=== PATIENT | female | born 1960 | race Caucasian/White ===

== ENCOUNTER 2020-04-29 17:10 | Outpatient (CLI) | payer BC, SELFPAY ==
--- NOTE | ~2020-04-29 | MM_ITS ---
EXAMINATION: 2 HISTORY: Screening mammogram TECHNIQUE: Craniocaudal and mediolateral oblique 3-D tomosynthesis images were obtained and synthetic 2-D images were generated. CAD analysis was submitted and interpreted. COMPARISON: 01/22/2019, 02/20/2017, 02/15/2016 bilateral digital screening mammogram examinations BREAST PARENCHYMAL COMPOSITION: The breasts are heterogeneously dense, which may obscure small masses . FINDINGS: Occasional bilateral benign calcifications. There is no evidence of suspicious mass, calcif ication, or architectural distortion to suggest malignancy in either breast. There has been no suspic ious interval change. IMPRESSION: 1. No mammographic evidence of malignancy. 2. Recommend routine screening mammography in one year. BI-RADS Category 1: Negative Reviewed, dictated and finalized at location A.
== END 2020-04-29 17:11 | disposition home or self-care (01) ==
LOC: ANHIMG 17:13
PROVIDERS: PCP Family Medicine; Visit Provider Obstetrics & Gynecology
DX: Z12.31 Encounter for screening mammogram for malignant neoplasm of breast (principal)
CPT/HCPCS: 77063; 77067

== ENCOUNTER → 2021-09-15 16:09 | Outpatient (CLI) | payer BC, SELFPAY ==
--- NOTE | ~2021-09-15 | MM_ITS ---
EXAMINATION: MM screening [facility] BI w amanda HISTORY: Screening mammogram TECHNIQUE: Craniocaudal and mediolateral oblique 3-D tomosynthesis images were obtained and synthetic 2-D images were generated. CAD analysis was submitted and interpreted. COMPARISON: 04/29/2020, 01/22/2019, 02/20/2017 BREAST PARENCHYMAL COMPOSITION: The breasts are heterogeneously dense, which may obscure small masses . FINDINGS: Scattered benign-appearing calcifications are present. There is no evidence of suspicious m ass, calcification, or architectural distortion to suggest malignancy in either breast. There has bee n no suspicious interval change. IMPRESSION: 1. No mammographic evidence of malignancy. 2. Recommend routine screening mammography in one year. BI-RADS Category 2: Benign finding(s). Reviewed, dictated and finalized at location A. [employer]OR OF EVENT MANAGEMENT
== END ==
PROVIDERS: PCP Family Medicine; Visit Provider Obstetrics & Gynecology
DX: Z12.31 Encounter for screening mammogram for malignant neoplasm of breast (principal)
CPT/HCPCS: 77063; 77067

== ENCOUNTER 2021-12-30 10:37 | Outpatient (CLI) | payer BC, SELFPAY ==
--- NOTE | ~2021-12-30 | XR_ITS ---
EXAMINATION: XR knee RT min 4V DATE: 12/30/2021 11:01 INDICATION: Chronic right knee pain. TECHNIQUE: 4 views of right knee including standing views were obtained. COMPARISON: None. FINDINGS: There is lateral subluxation of patella. No fracture. There is moderate osteoarthritis of p atellofemoral compartment and mild osteoarthritis of medial and lateral compartments. There is a smal l knee joint effusion. IMPRESSION: 1. Moderate right knee osteoarthritis. 2. Small right knee joint effusion. Reviewed, dictated and finalized at location B.
== END 2021-12-30 10:38 | disposition home or self-care (01) ==
LOC: ANHIMG 10:40
PROVIDERS: PCP Family Medicine; Visit Provider Physician Assistant
DX: M25.561 Pain in right knee (principal); M17.11 Unilateral primary osteoarthritis, right knee; M25.461 Effusion, right knee
CPT/HCPCS: 73564

== ENCOUNTER 2022-04-01 09:02 | Outpatient (CLI) | payer BC, SELFPAY ==
--- NOTE | ~2022-04-01 | MR_ITS ---
EXAMINATION: MR knee RT wo con DATE: 04/01/2022 09:48 INDICATION: Right knee pain. TECHNIQUE: Magnetic resonance imaging (MRI) of the right knee was performed without intravenous contr ast. Sequences included axial PD-weighted FS FSE, coronal PD-weighted FSE and PD-weighted FS FSE, sag ittal PD-weighted FSE, and sagittal T2-weighted FS FSE. COMPARISON: X-ray right knee, 12/30/2021. FINDINGS: Medial compartment: Mild generative signal change and fraying in the medial meniscus. No discrete tear. Moderate diffuse thinning of cartilage and osteophytosis. Lateral compartment: Attenuated anterior meniscus, without visualization of displaced or flipped fragments. Lateral menisc al extrusion. Degenerative fraying and signal change in the lateral meniscus. Moderate loss of cartil age and osteophytosis. Patellofemoral compartment: Full-thickness cartilage loss on the lateral facet. Moderate osteophytosis. Medial and lateral retina cula are intact. Ligaments and tendons: ACL, PCL, MCL, and LCL are intact. Flexor and extensor tendons are intact. Fluid: Moderate volume joint fluid. Osseous/other: No suspicious focal or diffuse marrow signal. IMPRESSION: 1. Degenerative changes of the lateral meniscus, with a tear of the anterior horn. 2. Moderate tricompartmental osteophytosis. 3. Moderate knee joint effusion. Reviewed, dictated and finalized at location K. IMPRESSION: 1. Degenerative changes of the lateral meniscus, with a tear of the anterior ho rn. 2. Moderate tricompartmental osteophytosis. 3. Moderate knee joint effusion.
== END 2022-04-01 09:03 | disposition home or self-care (01) ==
PROVIDERS: PCP Family Medicine; Visit Provider Family Medicine
DX: M25.461 Effusion, right knee (principal); S83.281A Other tear of lateral meniscus, current injury, right knee, initial encounter; X58.XXXA Exposure to other specified factors, initial encounter
CPT/HCPCS: 73721

== ENCOUNTER 2022-04-21 10:02 | Emergency (ER) | payer BC, SELFPAY ==
--- NOTE | 2022-04-21 10:08 | ED.URI ---
HPI - URI/Sore Throat General Chief Complaint: Upper Respiratory Infection Stated Complaint: Sore Throat,Headache,Fever Time Seen by Provider: 04/21/22 10:10 History of Present Illness HPI Narrative: Taylor Ramirez is a 61 yo female with a PMH of high blood pressure, who comes to [facility] with complaints of upper respiratory symptoms a temperature of 102? this being on for last couple of days. She has had 2- COVID test at home and is complaining of sore throat pain States she has sinus pressure, drinking fluids Related Data Home Medications Medication Instructions Recorded Confirmed cholecalciferol (vitamin D3) 25 1,000 unit PO DAILY 11/14/19 04/21/22 mcg (1,000 unit) capsule magnesium 250 mg tablet 250 mg PO DAILY 11/14/19 04/21/22 Allergies Allergy/AdvReac Type Severity Reaction Status Date / Time Sulfa (Sulfonamide AdvReac Mild Hives Verified 04/21/22 14:02 Antibiotics) Review of Systems Review of Systems: CONSTITUTIONAL: has fever, chills, sweats. EYES: Denies visual changes, redness, discharge. ENT: Denies rhinorrhea, congestion, has sore throat, otalgia. CARDIOVASCULAR: Denies chest pain, palpitations, edema. RESPIRATORY: Denies dyspnea, wheezing, cough GASTROINTESTINAL: Denies abdominal pain, nausea, vomiting, diarrhea. GENITOURINARY: Denies dysuria, hematuria, abnormal discharge SKIN: Denies rash or itching. NEUROLOGIC: Denies numbness, or focal weakness. PSYCHIATRIC: Denies anxiety or depression. [facility] Past Medical History Medical History Hepatitis C antibody test negative (06/15/17) Surgical History Surgical History H/O colonoscopy 05-01-2016 History of bilateral tubal ligation Family History Family History Father Diabetes mellitus Family history of elevated blood lipids Grandparent Diabetes mellitus Family history of osteoporosis Family history of arthritis Mother Diabetes mellitus Family history of elevated blood lipids Family history of glaucoma Hypertension Family history of arthritis Social History Social History Smoking status: Never smoker Alcohol intake: current Alcohol use details: occasionnally Substance use: never Substance use type: does not use Gender identity (if verbalized by the patient): Female Sexual Orientation (if Verbalized by the Patient): Straight or Heterosexual Agree to blood products: Yes Comments At time of signature, I agree with nursing past medical, surgical, social and family history. There is no relevant family history pertinent to the presenting complaint. Exam Narrative: GENERAL: This is a well-nourished, well-developed patient, in mild distress. HEAD: normocephalic, atraumatic. EYES: . Sclera clear/white. Vision is grossly intact. EARS: External ears normal, auditory canals clear and without drainage, TMs normal without perforation. Hearing grossly intact. Complaining of sinus pain NOSE: External nose normal without nasal discharge, nares without redness, no rhinorrhea. THROAT: Mucous membranes moist, posterior pharynx mild erythema NECK: Neck supple, non-tender CARDIOVASCULAR: Regular rate and rhythm without murmurs, gallops, or rubs. RESPIRATORY: Clear to auscultation. Breath sounds equal bilaterally. No wheezes, rales, or rhonchi. GASTROINTESTINAL: Not done SKIN: warm, intact with no suspicious lesions or rash, good texture and turgor. NEURO: awake, alert, and oriented to person, place and time. There were no obvious focal neurologic abnormalities. Steady gait EXTREMITIES: Normal range of motion. BACK: Nontender without deformity Course Course Emergency Course: prt comes with fever and sore throat COVID and strep negative started on steroids, zyrtec Level of Care: [facility]
[2022-04-21 10:10] VITALS: BP 111/71; PULSE 91; RESP 18; TEMP 36.5; O2SAT 97
== END 2022-04-21 11:15 | disposition home or self-care (01) ==
PROVIDERS: Emergency Provider Nurse Practitioner; PCP Family Medicine
DX: J01.10 Acute frontal sinusitis, unspecified (principal); Z20.822 Contact with and (suspected) exposure to COVID-19
CPT/HCPCS: 87081; 87426; 87880; 99213; C9803; G0463

== ENCOUNTER 2023-03-14 09:12 | Outpatient (CLI) | payer BC, SELFPAY ==
--- NOTE | 2023-04-02 17:37 | WPDHOMESLEEP ---
Sleep Study - Home Unattended Date of Study: 03/14/23 Ordering Provider: Jessiac Morales DO Interpreting Provider: Jessica Morales DO Home Sleep Study Type: Apnea Link Air Height: 1.63 m Weight: 68.039 kg Body Mass Index: 25.7 Neck Circumference (inches): 13.5 [place]: 4 Reason for Sleep Study Re-evaluate for BRO after significant weight loss Sleep History The patient is a 62-year-old female with previously diagnosed sleep apnea, depression and anxiety that had a sleep study ordered to see if she still had sleep apnea after significant weight loss. The patient denies having trouble sleeping when she has a cold. She denies waking up gasping for air throughout the night. She denies having breathing problems at night observed by herself or others. She rarely sweats excessively at night. She denies having heart palpitations or irregular heartbeats during the night. She denies falling asleep during the day and while driving. She denies sleep paralysis and cataplexy. She denies having trouble at school or work due to sleepiness. She rarely experiences vivid dreamlike scenes upon awakening or falling asleep. She denies feeling afraid of going to sleep. She denies having nightmares. She occasionally remembers her dreams. She occasionally has thoughts racing through her mind. She denies feeling sad or depressed. He rarely has anxiety. She denies having muscular tension. She denies noticing parts of her body jerk. She rarely kicks during the night. She rarely has crawling and aching feelings in her legs and rarely has leg pain during the night. She denies grinding her teeth during sleep and denies awakening with morning jaw pain. She denies being bothered by pain during the day and denies being awakened by pain during the night. She occasionally wakes up feeling stiff in the morning. She denies waking up with sore or achy muscles. She denies waking up with pain in the neck, spine and other joints. She goes to bed at 10:30 p.m. on weekdays and between 10:30 p.m. to 11:00 p.m. on the weekends. It takes her 20 minutes to fall asleep. She wakes up 4-5 times throughout the night to adjust position or urinate. She is able to fall back asleep within 3-5 minutes. She wakes up between 630-7 a.m. on weekdays and 8:00 a.m. on the weekends. She typically gets 9-10 hours of sleep per night. She will stay in bed for 15 minutes after waking up in the morning. She currently lives alone. She does not consume any caffeinated beverages within 2 hours of bedtime. She does not engage in physical exercise before bedtime. She will watch television before falling asleep. She will take naps in the afternoon or the evening but they are not refreshing. She consumes 2 diet sodas per day. She denies tobacco and recreational drug use. 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 Obstructive sleep apnea on CPAP Osteoarthritis Surgical History Surgical History History of bilateral tubal ligation History of colposcopy with cervical biopsy (03/20/12) mild dysplasiz (AKUA I) w/HPV Family History Family History Father Diabetes mellitus Family history of elevated blood lipids Grandparent Diabetes mellitus Family history of osteoporosis Family history of arthritis Osteoporosis grandmother Mother Diabetes mellitus Family history of elevated blood lipids Family history of glaucoma Hypertension Family history of arthritis Social History Social History Smoking status: Never smoker Alcoh
[2023-04-02 17:48] VITALS: BMI 25.7
== END 2023-03-15 13:01 | disposition home or self-care (01) ==
LOC: ANHCSM 09:13
PROVIDERS: PCP Family Medicine; Visit Provider Family Medicine
DX: G47.33 Obstructive sleep apnea (adult) (pediatric) (principal)
CPT/HCPCS: 95806

== ENCOUNTER 2023-09-06 08:40 | Outpatient (CLI) | payer BC, SELFPAY ==
[2023-09-06 19:15] LABS: Hemoglobin 14.4 g/dL (12.0-15.0); Mean Corpuscular HGB Conc 31.3 g/dl (32-36); Mean Corpuscular Hemoglobin 28.9 pg (26-34); Mean Corpuscular Volume 92.4 fl (80-100); Mean Platelet Volume 11.3 fl (7.4-10.4); Platelet Count Result 218 k/mm3 (150-375); Red Blood Count 4.98 M/mm3 (4.2-5.4); Red Cell Distribution Width 13.4 % (11.5-14.5); White Blood Count 5.7 K/mm3 (4.5-10.0)
[2023-09-06 19:24] LABS: Alanine Aminotransferase 16 U/L (6-35); Albumin Level 3.9 g/dL (3.5-5.1); Alkaline Phosphatase 102 U/L (38-126); Anion Gap 9 mmol/L (8-16); Aspartate Amino Transferase 46 U/L (14-36); Bilirubin,Total 0.5 mg/dL (0.2-1.3); Blood Urea Nitrogen 18 mg/dL (7-17); Carbon Dioxide 27 mmol/L (22-30); Chloride 105 mmol/L (98-107); Cholesterol 171 mg/dL (0-200); Estimated Glomerular Filt Rate > 60; Glucose 88 mg/dL (65-110); HDL Direct 55 mg/dL; Potassium 3.9 mmol/L (3.4-5.0); Sodium 141 mmol/L (137-145); Triglycerides 116 mg/dL (<150)
[2023-09-06 20:13] LABS: LDL Cholesterol Direct 83 mg/dL
[2023-09-06 22:45] LABS: Hemoglobin A1C 5.6 % (<5.7)
== END 2023-09-06 08:41 | disposition home or self-care (01) ==
LOC: ANHGOSHLAB 08:42
PROVIDERS: PCP Family Medicine; Visit Provider Family Medicine
DX: R73.03 Prediabetes (principal); E78.2 Mixed hyperlipidemia; Z79.899 Other long term (current) drug therapy
CPT/HCPCS: 36415; 80053; 80061; 83036; 84443; 85027

== ENCOUNTER → 2023-09-14 13:28 | Outpatient (CLI) | payer BC, SELFPAY ==
--- NOTE | ~2023-09-14 | MM_ITS ---
EXAMINATION: MM screening [facility] BI w amanda HISTORY: Screening mammogram TECHNIQUE: Craniocaudal and mediolateral oblique 3-D tomosynthesis images were obtained and synthetic 2-D images were generated. CAD analysis was submitted and interpreted. COMPARISON: 09/15/2021, 04/29/2020, 01/22/2019 BREAST PARENCHYMAL COMPOSITION: The breasts are heterogeneously dense, which may obscure small masses . FINDINGS: No suspicious mass, calcification, or architectural distortion are identified in either dorothy ast to suggest malignancy. There has been no suspicious interval change. IMPRESSION: 1. No mammographic evidence of malignancy. 2. Recommend routine screening mammography in one year. BI-RADS Category 1: Negative Reviewed, dictated and finalized at location A. AGE ATTENDANT
--- NOTE | ~2023-09-14 | DEXA_ITS ---
Bone Density Report Name: ROSY ABAD Age: 63 Sex: Female Ethnicity: White Date of : 1960 Indication: postmenopausal; screening for osteoporosis; height loss; Referring Provider: Nasim Cabrera Study: Bone densitometry was performed. Exam Date: September 14, 2023 Accession number: [id number] Bone Density: Region BMD T-score Z-score Classification AP Spine (L1-L4) 1.092 0.4 2.0 Normal Femoral Neck (Left) 0.724 -1.1 0.3 Osteopenia Total Hip (Left) 0.834 -0.9 0.2 Normal Femoral Neck (Right) 0.699 -1.4 0.1 Osteopenia Total Hip (Right) 0.794 -1.2 -0.1 Osteopenia Total Hip Mean 0.814 -1.1 0.1 Osteopenia World Health Organization criteria for BMD impression classify patients as: Normal (T-score at or above -1.0), Osteopenia (T-score between -1.0 and -2.5), or Osteoporosis (T-score at or below -2.5). 10-year Fracture Risk(1): Major Osteoporotic Fracture 8.0% Hip Fracture 0.7% Reported Risk Factors: [place] (), Neck BMD=0.699, BMI=28.7 (1) FRAX(R) Version 3.08. Fracture probability calculated for an untreated patient. Fracture probability may be lower if the patient has received treatment. Previous Exams: Region Exam Age BMD T-score BMD Change BMD Change Date g/cm2 vs Baseline vs Previous AP Spine(L1-L4) 09/14/2023 63 1.092 0.4 -0.037* -0.030* 11/04/2012 52 1.122 0.7 -0.007 -0.007 10/19/2010 50 1.130 0.8 Total Hip(Left) 09/14/2023 63 0.834 -0.9 -0.127* -0.145* 11/04/2012 52 0.980 0.3 0.018 0.018 10/19/2010 50 0.962 0.2 Total Hip(Right) 09/14/2023 63 0.794 -1.2 -0.138* -0.139* 11/04/2012 52 0.933 -0.1 0.002 0.002 10/19/2010 50 0.931 -0.1 *Denotes significance at 95% confidence level, LSC for AP Spine = 0.022 g/cm2, LSC for Total Hip = 0.027 g/cm2 Clinical Information Provided by Patient: Has used the following medications: Vitamin D Patient maximum height was 65 Menopause Age: 49 No regular weight bearing exercise Does not regularly consume dairy products Drinks caffeinated beverages Onset of menses at age 13 Number of children 2 Impression: The patient has low bone mass, based on the Right Femoral Neck T-score. The patient has an estimated ten-year risk of hip fracture of 0.7% and an estimated ten-year risk of major fracture of 8%, based on the WHO FRAX algorith
== END ==
PROVIDERS: PCP Family Medicine; Visit Provider Obstetrics & Gynecology
DX: Z12.31 Encounter for screening mammogram for malignant neoplasm of breast (principal); M85.89 Other specified disorders of bone density and structure, multiple sites; Z78.0 Asymptomatic menopausal state
CPT/HCPCS: 77063; 77067; 77080

== ENCOUNTER 2023-12-11 18:14 | Emergency (ER) | payer BC, SELFPAY ==
--- NOTE | ~2023-12-11 | XR_ITS ---
EXAMINATION: XR chest 1V portable Exam Date/Time: 12/11/2023 18:55 CDT HISTORY: PALPITATION Comparison: None. RESULT: Lines, tubes, and devices: None. Lungs and pleura: Clear. Cardiomediastinal silhouette: Moderate hiatal hernia. Otherwise unremarkable. Other: No acute osseous or upper abdominal finding. IMPRESSION: No acute cardiopulmonary process. Reviewed, dictated and finalized at location K.
[2023-12-11 18:17] VITALS: BP 110/90; PULSE 182; RESP 20; TEMP 36.1; O2SAT 99
--- NOTE | 2023-12-11 18:19 | ECG_ITS ---
Measurements Intervals [address] [place] Rate: 181 P: VT: 0 QRS: 7 QRSD: 85 T: -26 QT: 237 QTc: 412 Interpretive Statements SUPRAVENTRICULAR TACHYCARDIA MODERATE ST DEPRESSION [0.05+ mV ST DEPRESSION] NO PREVIOUS ECG AVAILABLE FOR COMPARISON Electronically Signed On 12-12-2023 12:19:52 CDT by Saurav Young M.D.
[2023-12-11] MEDS: ADENOSINE IV SOLN 6 MG/2 ML VIAL IV PUSH (18:34)
[2023-12-11] MEDS: SODIUM CHLORIDE 0.9% IV 1,000 ML 999 ML IV CONT (18:41)
--- NOTE | 2023-12-11 18:43 | ED.ARRPALP ---
HPI - Arrhythmia/Palpitations General Chief Complaint: Arrhythmia/Palpitations <Royer Wong MD - Last Filed: 12/11/23 19:04> Stated Complaint: heart racing with activity, hx panic disorder <Royer Wong MD - Last Filed: 12/11/23 19:04> Time Seen by Provider: 12/11/23 18:33 <Royer Wong MD - Last Filed: 12/11/23 19:04> Source: patient <Royer Wong MD - Last Filed: 12/11/23 19:04> Mode of arrival: ambulatory <Royer Wong MD - Last Filed: 12/11/23 19:04> Limitations: no limitations <Royer Wong MD - Last Filed: 12/11/23 19:04> History of Present Illness HPI narrative: 63 YEARS OLD WHITE FEMALE CAME TO THE EMERGENCY ROOM BY A PRIVATE CAR COMPLAINING OF SUDDEN ONSET OF FAST HEART RATE WHILE GOING UP STAIRS. SHE DENIES ANY LIGHTHEADEDNESS, DIZZINESS, CHEST PAIN, SHORTNESS OF BREATH OR BACK PAIN, SHE DENIES ANY FEVER, CHILLS, NAUSEA, VOMITING. HISTORY OF HYPERLIPIDEMIA, AND ANXIETY. HISTORY OF SIMILAR SYMPTOMS NUMEROUS OF TIME IN THE PAST, NEVER BEEN SEEN BY A PROJECT MANAGEMENT DIRECTOR, NEVER BEEN TREATED FOR IT BEFORE. <Royer Wong MD - Last Filed: 12/11/23 19:04> 63 YEARS OLD WHITE FEMALE CAME TO THE EMERGENCY ROOM BY A PRIVATE CAR COMPLAINING OF SUDDEN ONSET OF FAST HEART RATE WHILE GOING UP STAIRS. SHE DENIES ANY LIGHTHEADEDNESS, DIZZINESS, CHEST PAIN, SHORTNESS OF BREATH OR BACK PAIN, SHE DENIES ANY FEVER, CHILLS, NAUSEA, VOMITING. HISTORY OF HYPERLIPIDEMIA, AND ANXIETY. HISTORY OF SIMILAR SYMPTOMS 2 TIMES IN THE PAST, NEVER BEEN SEEN BY A PROJECT MANAGEMENT DIRECTOR, NEVER BEEN TREATED FOR IT BEFORE. <Hilario Fraser MD - Last Filed: 12/11/23 20:04> Related Data Home Medications: Home Medications Medication Instructions Recorded Confirmed cholecalciferol (vitamin D3) 25 1,000 unit PO DAILY 11/14/19 09/11/23 mcg (1,000 unit) capsule magnesium 250 mg tablet 250 mg PO DAILY 11/14/19 09/11/23 meloxicam 15 mg tablet 15 mg PO DAILY PRN 10/20/22 09/11/23 <Royer Wong MD - Last Filed: 12/11/23 19:04> Allergies/Adverse Reactions: Allergies Allergy/AdvReac Type Severity Reaction Status Date / Time Sulfa (Sulfonamide AdvReac Mild Hives Verified 12/11/23 18:15 Antibiotics) <Royer Wong MD - Last Filed: 12/11/23 19:04> Review of Systems Review of Systems: All systems reviewed & are unremarkable except as noted in HPI and below <Royer Wong MD - Last Filed: 12/11/23 19:04> PMFSH Past Medical History Medical History: Medical History Abnormal Pap smear of cervix 02/21/02 lgsil/AKUA I/HPV; 03/20/02 cx bx - mild dysplasia (AKUA I) hpv; 09/26/11 ascus Anxiety and depression Hepatitis C antibody test negative (06/15/17) 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 Menopause Obstructive sleep apnea on CPAP Osteoarthritis Screening mammogram, encounter for <Royer Wong MD - Last Filed: 12/11/23 19:04> Surgical History Surgical History: Surgical History History of bilateral tubal ligation History of colposcopy with cervical biopsy (03/20/12) mild dysplasiz (AKUA I) w/HPV <Royer Wong MD - Last Filed: 12/11/23 19:04> Family History Family History: Family History Father Diabetes mellitus Family history of elevated blood lipids Grandparent Diabetes mellitus Family history of osteoporosis Family history of arthritis Osteoporosis grandmother Mother Diabetes mellitus Family history of elevated blood lipids Family history of glaucoma Hypertension Family history of arthritis <Royer Wong MD - Last Filed: 12/11/23 19:04> Social History Social History: Social History Smoking status: Never smoker Alcohol intake: never Alcohol use details: occasionnally Substance use: never Substance use type: does not use Lack of
--- NOTE | 2023-12-11 18:44 | PC.NURSE ---
Pt to room 3 with c/o heart racing, cardiac rhythm SVT per monitor & EKG. Dr. Wong at bedside vagal maneuvers attempted unsuccessful. Adenosine 6mg IVP given with results sinus tach. Pt tolerated well
[2023-12-11 18:45] VITALS: BP 125/83; PULSE 92; RESP 18; O2SAT 100
[2023-12-11 18:57] LABS: Basophils Absolute Auto 0.1 K/mm3 (0.0-0.1); Basophils Percent Auto 0.7 % (0.2-1.2); Eosinophils Absolute Auto 0.1 K/mm3 (0-0.3); Eosinophils Percent Auto 1.1 % (0-4.4); Hemoglobin 15.1 g/dL (12.0-15.0); Immature Granulocyte Absolute 0.02 K/mm3 (0.00-0.031); Immature Granulocyte Percent A 0.2 % (0-0.5); Lymphocytes Absolute Auto 2.74 K/mm3 (0.9-3.2); Lymphocytes Percent Auto 30.4 % (18.3-44.2); Mean Corpuscular HGB Conc 32.1 g/dl (32-36); Mean Corpuscular Hemoglobin 29.7 pg (26-34); Mean Corpuscular Volume 92.5 fl (80-100); Mean Platelet Volume 10.9 fl (7.4-10.4); Monocytes Absolute Auto 0.7 K/mm3 (0.1-0.6); Monocytes Percent Auto 8.2 % (2.6-8.5); Neutrophils Absolute Auto 5.4 K/mm3 (1.3-6.7); Neutrophils Percent Auto 59.4 % (45.5-73.1); Platelet Count Result 240 k/mm3 (150-375); Red Blood Count 5.08 M/mm3 (4.2-5.4); Red Cell Distribution Width 13.9 % (11.5-14.5)
--- NOTE | 2023-12-11 18:57 | ECG_ITS ---
Measurements Intervals [place] Rate: 110 P: 36 MS: 188 QRS: 9 QRSD: 76 T: 1 QT: 290 QTc: 392 Interpretive Statements SINUS TACHYCARDIA MINIMAL ST DEPRESSION [0.025+ mV ST DEPRESSION] ABNORMAL RHYTHM ECG COMPARED TO ECG 12/11/2023 18:27:15 SINUS TACHYCARDIA NOW PRESENT Electronically Signed On 12-12-2023 12:20:04 CDT by Saurav Young M.D.
[2023-12-11 19:07] LABS: INR 0.8; Prothrombin Time 11.8 Seconds (11.1-14.7)
[2023-12-11 19:09] LABS: Alanine Aminotransferase 15 U/L (6-35); Albumin Level 4.1 g/dL (3.5-5.1); Alkaline Phosphatase 100 U/L (38-126); Anion Gap 7 mmol/L (4-12); Aspartate Amino Transferase 32 U/L (14-36); Bilirubin,Total 0.4 mg/dL (0.2-1.3); Blood Urea Nitrogen 17 mg/dL (7-17); Calcium 9.1 mg/dL (8.4-10.2); Carbon Dioxide 27 mmol/L (22-30); Chloride 105 mmol/L (98-107); Estimated CRCL calculation 50 ml/min; Estimated Glomerular Filt Rate 56; Glucose 116 mg/dL (65-110); Potassium 3.5 mmol/L (3.4-5.0); Sodium 139 mmol/L (137-145)
[2023-12-11 19:18] LABS: NT Pro B Type Natriuretic Pept 114 pg/mL (19.9-100); Troponin I < 0.012 ng/mL (0.000-0.034)
[2023-12-11 19:21] LABS: Partial Thromboplastin Time 20.4 Seconds (22.3-36.8)
[2023-12-11 19:34] VITALS: PULSE 89
[2023-12-11 20:14] VITALS: BP 117/67; PULSE 88; RESP 18; O2SAT 96
== END 2023-12-11 20:16 | disposition home or self-care (01) ==
PROVIDERS: Emergency Medicine; Emergency Provider Emergency Medicine; PCP Family Medicine
DX: I47.10 Supraventricular tachycardia, unspecified (principal); E78.5 Hyperlipidemia, unspecified; G47.33 Obstructive sleep apnea (adult) (pediatric); M19.90 Unspecified osteoarthritis, unspecified site; F32.A Depression, unspecified; F41.9 Anxiety disorder, unspecified
CPT/HCPCS: 36415; 71045; 80053; 83880; 84484; 85025; 85610; 85730; 93005; 96361; 96374; 99284; J0153; J7030

== ENCOUNTER 2024-01-10 10:13 | Outpatient (CLI) | payer BC, SELFPAY ==
[2024-01-10 19:08] LABS: Alanine Aminotransferase 17 U/L (6-35); Albumin Level 4.2 g/dL (3.5-5.1); Alkaline Phosphatase 108 U/L (38-126); Anion Gap 6 mmol/L (4-12); Aspartate Amino Transferase 34 U/L (14-36); Bilirubin,Total 0.8 mg/dL (0.2-1.3); Blood Urea Nitrogen 20 mg/dL (7-17); Calcium 9.4 mg/dL (8.4-10.2); Carbon Dioxide 26 mmol/L (22-30); Chloride 107 mmol/L (98-107); Cholesterol 177 mg/dL (0-200); Estimated Glomerular Filt Rate > 60; Glucose 97 mg/dL (65-110); HDL Direct 61 mg/dL; Potassium 3.9 mmol/L (3.4-5.0); Sodium 139 mmol/L (137-145); Triglycerides 103 mg/dL (<150)
[2024-01-10 19:20] LABS: LDL Cholesterol Direct 100 mg/dL
== END 2024-01-10 10:14 | disposition home or self-care (01) ==
LOC: ANHGOSHLAB 10:14
PROVIDERS: PCP Family Medicine; Visit Provider Family Medicine
DX: E78.2 Mixed hyperlipidemia (principal); E66.9 Obesity, unspecified; Z79.899 Other long term (current) drug therapy
CPT/HCPCS: 36415; 80053; 80061; 84443

== ENCOUNTER 2024-02-07 13:37 | Outpatient (CLI) | payer BC, SELFPAY ==
[2024-02-07 20:08] LABS: Hemoglobin 14.4 g/dL (12.0-15.0); Mean Corpuscular HGB Conc 32.7 g/dl (32-36); Mean Corpuscular Hemoglobin 29.9 pg (26-34); Mean Corpuscular Volume 91.5 fl (80-100); Mean Platelet Volume 11.4 fl (7.4-10.4); Platelet Count Result 234 k/mm3 (150-375); Red Blood Count 4.81 M/mm3 (4.2-5.4); Red Cell Distribution Width 13.3 % (11.5-14.5)
[2024-02-07 20:49] LABS: Alanine Aminotransferase 10 U/L (6-35); Albumin Level 4.1 g/dL (3.5-5.1); Alkaline Phosphatase 114 U/L (38-126); Anion Gap 5 mmol/L (4-12); Aspartate Amino Transferase 36 U/L (14-36); Bilirubin,Total 0.6 mg/dL (0.2-1.3); Blood Urea Nitrogen 21 mg/dL (7-17); Carbon Dioxide 26 mmol/L (22-30); Chloride 108 mmol/L (98-107); Cholesterol 161 mg/dL (0-200); Estimated Glomerular Filt Rate > 60; Glucose 85 mg/dL (65-110); HDL Direct 56 mg/dL; Potassium 4.2 mmol/L (3.4-5.0); Sodium 139 mmol/L (137-145); Triglycerides 117 mg/dL (<150)
[2024-02-07 21:00] LABS: LDL Cholesterol Direct 89 mg/dL
== END 2024-02-07 13:38 | disposition home or self-care (01) ==
LOC: ANHGOSHLAB 13:39
PROVIDERS: PCP Family Medicine; Visit Provider Family Medicine
DX: E78.2 Mixed hyperlipidemia (principal); E88.810 Metabolic syndrome; Z79.899 Other long term (current) drug therapy
CPT/HCPCS: 36415; 80053; 80061; 84443; 85027

== ENCOUNTER 2024-03-03 08:02 | Emergency (ER) | payer BC, SELFPAY ==
[2024-03-03 08:11] VITALS: BP 128/90; PULSE 86; RESP 20; TEMP 37.7; O2SAT 98
--- NOTE | 2024-03-03 08:19 | ED.URI ---
HPI - URI/Sore Throat General Chief Complaint: Upper Respiratory Infection Stated Complaint: HEADACHE/EARACHE/SINUS/COUGH Time Seen by Provider: 03/03/24 08:16 Source: patient, RN notes reviewed and old records reviewed Mode of arrival: ambulatory Limitations: no limitations History of Present Illness HPI Narrative: Patient presents today with complaints of sinus pain and pressure for 3 days. She denies any fever. She does complain of some chills. Does complain of some fatigue. No nausea or vomiting. No sore throat. Mild cough. Related Data Home Medications Medication Instructions Recorded Confirmed cholecalciferol (vitamin D3) 25 1,000 unit PO DAILY 11/14/19 03/03/24 mcg (1,000 unit) capsule magnesium 250 mg tablet 250 mg PO DAILY 11/14/19 03/03/24 meloxicam 15 mg tablet 15 mg PO DAILY PRN Pain 10/20/22 03/03/24 Allergies Allergy/AdvReac Type Severity Reaction Status Date / Time Sulfa (Sulfonamide AdvReac Mild Hives Verified 03/03/24 08:09 Antibiotics) Review of Systems Review of Systems: All systems reviewed & are unremarkable except as noted in HPI and below Constitutional: Constitutional: Reports no additional constitutional complaints ENT: Reports system reviewed and no additional complaints, except as documented Cardiovascular: Cardiovascular: Reports no additional cardiovascular complaints Respiratory: Respiratory: Reports no additional respiratory complaints Gastrointestinal: Gastrointestinal: Reports no additional gastrointestinal complaints PMFSH Past Medical History Medical History Abnormal Pap smear of cervix 02/21/02 lgsil/AKUA I/HPV; 03/20/02 cx bx - mild dysplasia (AKUA I) hpv; 09/26/11 ascus Anxiety and depression Hepatitis C antibody test negative (06/15/17) 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 Menopause Obstructive sleep apnea on CPAP Osteoarthritis Screening mammogram, encounter for Surgical History Surgical History History of bilateral tubal ligation History of colposcopy with cervical biopsy (03/20/12) mild dysplasiz (AKUA I) w/HPV Family History Family History Father Diabetes mellitus Family history of elevated blood lipids Grandparent Diabetes mellitus Family history of osteoporosis Family history of arthritis Osteoporosis grandmother Mother Diabetes mellitus Family history of elevated blood lipids Family history of glaucoma Hypertension Family history of arthritis Social History Social History Smoking status: Never smoker Alcohol intake: never Alcohol use details: occasionnally Substance use: never Substance use type: does not use Lack of Transportation: No Lack of Food: Never True Current Housing: I Have Housing Concerned About Future Housing: No Difficulty Paying Gas/Electric Bills: No Difficulty Paying for Meds: No Currently Unemployed: No Education: Trade/Vocational Certificate Difficulty w/ Childcare or Family Care: No Living arrangements: alone Additional living arrangements comments: Occupation/Education: occupation 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 There is no relevant family history pertinent to the patient complaint. Exam Const: General: cooperative, no acute distress, alert and awake Orientation/consciousness: oriented to person, oriented to place and oriented to time HENMT: Head: normal to inspection Ears: external ears normal and TM's normal bilaterally R
== END 2024-03-03 08:48 | disposition home or self-care (01) ==
PROVIDERS: Emergency Provider Nurse Practitioner Family; PCP Family Medicine
DX: U07.1 COVID-19 (principal); G47.33 Obstructive sleep apnea (adult) (pediatric); M19.90 Unspecified osteoarthritis, unspecified site; F41.9 Anxiety disorder, unspecified; F32.A Depression, unspecified
CPT/HCPCS: 87426; 87804; 99213; G0463

== ENCOUNTER 2024-03-27 15:24 | Emergency (ER) | payer BC, SELFPAY ==
--- NOTE | ~2024-03-27 | XR_ITS ---
XR chest 1V portable Ordering provider: Royer Wong History: 63 years Female with . Tachycardia . Comparison: December 11, 2023 FINDINGS: MEDIASTINUM: The cardiac silhouette is not enlarged. Sliding hiatus hernia. LUNGS: No infiltrates, effusions or pneumothorax. OTHER: No free air under the diaphragm. Degenerative changes of the spine. IMPRESSION: No acute cardiopulmonary pathology. Reviewed, dictated and finalized at location A.
--- NOTE | 2024-03-27 15:26 | ECG_ITS ---
Test Date: 2024-03-27 15:29:29 Measurements Intervals [place] Rate: 176 P: 0 CO: 0 QRS: 40 QRSD: 81 T: -12 QT: 243 QTc: 416 Interpretive Statements SUPRAVENTRICULAR TACHYCARDIA BORDERLINE ST-T WAVE ABNORMALITY- ANTEROLAT/INF LEADS BASELINE ARTIFACT- I, II, III, AVR, AVL, AVF ABNORMAL ECG No previous ECG available for comparison Electronically Signed On 03-27-2024 16:36:00 CDT by Benny Jack D.O.
--- NOTE | 2024-03-27 15:35 | ED.ARRPALP ---
HPI - Arrhythmia/Palpitations General Chief Complaint: Arrhythmia/Palpitations Stated Complaint: svt Time Seen by Provider: 03/27/24 15:35 Source: patient and family Mode of arrival: ambulatory Limitations: no limitations History of Present Illness HPI narrative: 63 years old white female came to the emergency room with fast heart beat started 3 hours ago. History of SVT, was seen by incinerator plant general supervisor, status post heart monitor and echo, not on any medication at this time. She denies any chest pain or shortness of breath. Patient tried Valsalva maneuver at home without any response complaint: heart racing Related Data Home Medications Medication Instructions Recorded Confirmed cholecalciferol (vitamin D3) 25 1,000 unit PO DAILY 11/14/19 03/03/24 mcg (1,000 unit) capsule magnesium 250 mg tablet 250 mg PO DAILY 11/14/19 03/03/24 meloxicam 15 mg tablet 15 mg PO DAILY PRN Pain 10/20/22 03/03/24 Allergies Allergy/AdvReac Type Severity Reaction Status Date / Time Sulfa (Sulfonamide AdvReac Mild Hives Verified 03/03/24 08:09 Antibiotics) Review of Systems Review of Systems: All systems reviewed & are unremarkable except as noted in HPI and below PMFSH Past Medical History Medical History Abnormal Pap smear of cervix 02/21/02 lgsil/AKUA I/HPV; 03/20/02 cx bx - mild dysplasia (AKUA I) hpv; 09/26/11 ascus Anxiety and depression Hepatitis C antibody test negative (06/15/17) 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 Menopause Obstructive sleep apnea on CPAP Osteoarthritis Screening mammogram, encounter for Surgical History Surgical History History of bilateral tubal ligation History of colposcopy with cervical biopsy (03/20/12) mild dysplasiz (AKUA I) w/HPV Family History Family History Father Diabetes mellitus Family history of elevated blood lipids Grandparent Diabetes mellitus Family history of osteoporosis Family history of arthritis Osteoporosis grandmother Mother Diabetes mellitus Family history of elevated blood lipids Family history of glaucoma Hypertension Family history of arthritis Social History Social History Smoking status: Never smoker Alcohol intake: never Alcohol use details: occasionnally Substance use: never Substance use type: does not use Lack of Transportation: No Lack of Food: Never True Current Housing: I Have Housing Concerned About Future Housing: No Difficulty Paying Gas/Electric Bills: No Difficulty Paying for Meds: No Currently Unemployed: No Education: Trade/Vocational Certificate Difficulty w/ Childcare or Family Care: No Living arrangements: alone Additional living arrangements comments: Occupation/Education: occupation 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 Gender identity (if verbalized by the patient): Female Sexual Orientation (if Verbalized by the Patient): Straight or Heterosexual Agree to blood products: Yes Exam Narrative: General appearance: Well-developed, well-nourished Skin: Normal color Head: Normocephalic, nontraumatic Eyes: Clear conjunctiva ENT: Oropharynx normal, ears normal, nose normal Neck: Supple, nontender Chest and respiratory: Airway patent, no respiratory distress, no accessory muscle use Heart: Tachycardia Abdomen: Soft, nontender, no organomegaly, quiet bowel sounds Vascular: Normal peripheral pulses, normal capillary refill. Musculoskeletal: Normal range of motion, nontender back Neurologic: Alert and oriented ?3, ADVERTISING SALES ASSISTANT is normal as tested, no gross motor deficit
[2024-03-27] MEDS: ADENOSINE IV SOLN 6 MG/2 ML VIAL IV PUSH (15:46)
[2024-03-27 15:47] VITALS: BP 106/75; PULSE 91; RESP 18; O2SAT 99
[2024-03-27 15:56] LABS: Basophils Absolute Auto 0.1 K/mm3 (0.0-0.1); Basophils Percent Auto 0.8 % (0.2-1.2); Eosinophils Absolute Auto 0.2 K/mm3 (0-0.3); Eosinophils Percent Auto 1.8 % (0-4.4); Hematocrit 49.4 % (37.0-47.0); Hemoglobin 16.2 g/dL (12.0-15.0); Immature Granulocyte Absolute 0.03 K/mm3 (0.00-0.031); Immature Granulocyte Percent A 0.3 % (0-0.5); Lymphocytes Absolute Auto 2.52 K/mm3 (0.9-3.2); Lymphocytes Percent Auto 27.9 % (18.3-44.2); Mean Corpuscular HGB Conc 32.8 g/dl (32-36); Mean Corpuscular Hemoglobin 30.1 pg (26-34); Mean Corpuscular Volume 91.8 fl (80-100); Mean Platelet Volume 10.6 fl (7.4-10.4); Monocytes Absolute Auto 0.7 K/mm3 (0.1-0.6); Monocytes Percent Auto 7.7 % (2.6-8.5); Neutrophils Absolute Auto 5.6 K/mm3 (1.3-6.7); Neutrophils Percent Auto 61.5 % (45.5-73.1); Platelet Count Result 278 k/mm3 (150-375); Red Blood Count 5.38 M/mm3 (4.2-5.4); Red Cell Distribution Width 13.4 % (11.5-14.5)
[2024-03-27 16:01] LABS: Alanine Aminotransferase 13 U/L (6-35); Albumin Level 4.6 g/dL (3.5-5.1); Alkaline Phosphatase 114 U/L (38-126); Anion Gap 13 mmol/L (4-12); Aspartate Amino Transferase 22 U/L (14-36); Bilirubin,Total 0.5 mg/dL (0.2-1.3); Blood Urea Nitrogen 18 mg/dL (7-17); Calcium 9.1 mg/dL (8.4-10.2); Carbon Dioxide 25 mmol/L (22-30); Chloride 104 mmol/L (98-107); Estimated CRCL calculation 58 ml/min; Estimated Glomerular Filt Rate > 60; Glucose 110 mg/dL (65-110); Potassium 3.9 mmol/L (3.4-5.0); Sodium 142 mmol/L (137-145)
[2024-03-27 16:02] LABS: INR 0.9; Prothrombin Time 12.8 Seconds (11.1-14.7)
[2024-03-27 16:13] LABS: NT Pro B Type Natriuretic Pept 296 pg/mL (19.9-100); Troponin I 0.013 ng/mL (0.000-0.034)
--- NOTE | 2024-03-27 16:21 | PC.NURSE ---
patient called the tapper bit from her room. they are wanting to start the patient on short acting diltiazem 30 mg po tid. if tolerated switch to daily. [facility] office is sending the prescription in and stated that she should be able to start that medication tonhailey
--- NOTE | 2024-03-27 17:26 | ECG_ITS ---
Test Date: 2024-03-27 17:43:26 Measurements Intervals [place] Rate: 82 P: 36 VA: 205 QRS: 11 QRSD: 77 T: 11 QT: 365 QTc: 427 Interpretive Statements SINUS RHYTHM WITH FIRST DEGREE AV BLOCK BASELINE ARTIFACT- I, II, AVR, V1 BORDERLINE ECG Compared to ECG 03/27/2024 15:29:29 Supraventricular tachycardia no longer present Electronically Signed On 03-27-2024 18:52:41 CDT by Benny Jack D.O.
[2024-03-27 17:49] VITALS: BP 119/80; PULSE 80; RESP 18; TEMP 36.4; O2SAT 100
== END 2024-03-27 18:13 | disposition home or self-care (01) ==
PROVIDERS: Emergency Provider Emergency Medicine; PCP Family Medicine
DX: I47.10 Supraventricular tachycardia, unspecified (principal); G47.33 Obstructive sleep apnea (adult) (pediatric); M19.90 Unspecified osteoarthritis, unspecified site
CPT/HCPCS: 36415; 71045; 80053; 83880; 84484; 85025; 85610; 85730; 93005; 96374; 99284; J0153; J7030

== ENCOUNTER 2024-05-16 14:54 | Outpatient (CLI) | payer BC, SELFPAY ==
[2024-05-16 18:42] LABS: Magnesium 1.9 mg/dL (1.6-2.3)
== END 2024-05-16 14:55 | disposition home or self-care (01) ==
LOC: ANHGOSHLAB 14:57
PROVIDERS: PCP Family Medicine
DX: I47.10 Supraventricular tachycardia, unspecified (principal)
CPT/HCPCS: 36415; 83735

== ENCOUNTER 2024-05-27 09:32 | Outpatient (CLI) | payer BC, SELFPAY ==
[2024-05-27 13:58] LABS: Hematocrit 45.1 % (37.0-47.0); Hemoglobin 14.2 g/dL (12.0-15.0); Mean Corpuscular HGB Conc 31.5 g/dl (32-36); Mean Corpuscular Hemoglobin 29.5 pg (26-34); Mean Corpuscular Volume 93.6 fl (80-100); Platelet Count Result 246 k/mm3 (150-375); Red Blood Count 4.82 M/mm3 (4.2-5.4); Red Cell Distribution Width 13.4 % (11.5-14.5)
[2024-05-27 14:10] LABS: Hemoglobin A1C 5.5 % (<5.7)
[2024-05-27 14:29] LABS: Alanine Aminotransferase 11 U/L (6-35); Albumin Level 4.1 g/dL (3.5-5.1); Alkaline Phosphatase 108 U/L (38-126); Anion Gap 10 mmol/L (4-12); Aspartate Amino Transferase 50 U/L (14-36); Bilirubin,Total 0.5 mg/dL (0.2-1.3); Blood Urea Nitrogen 17 mg/dL (7-17); Calcium 9.2 mg/dL (8.4-10.2); Carbon Dioxide 25 mmol/L (22-30); Chloride 104 mmol/L (98-107); Cholesterol 160 mg/dL (0-200); Estimated Glomerular Filt Rate > 60; Glucose 78 mg/dL (65-110); HDL Direct 59 mg/dL; Potassium 3.9 mmol/L (3.4-5.0); Sodium 139 mmol/L (137-145); Triglycerides 109 mg/dL (<150)
[2024-05-27 14:40] LABS: LDL Cholesterol Direct 74 mg/dL
== END 2024-05-27 09:33 | disposition home or self-care (01) ==
LOC: ANHGOSHLAB 09:33
PROVIDERS: PCP Family Medicine; Visit Provider Family Medicine
DX: R73.03 Prediabetes (principal); E78.2 Mixed hyperlipidemia; E66.9 Obesity, unspecified; R79.89 Other specified abnormal findings of blood chemistry; Z79.899 Other long term (current) drug therapy
CPT/HCPCS: 36415; 80053; 80061; 83036; 84443; 85027

== ENCOUNTER 2024-11-04 09:05 | Outpatient (CLI) | payer BC, SELFPAY ==
--- OUTSIDE RECORDS SUMMARY | 2024-11-04 09:49 | XMS_ITS | Referral Summary ---
Author Organization [facility] Address [address] [place] [address] Care Team Providers Care Upholstery Mechanic Name Role Phone Annel Allred DO Primary Care Provider +1- [phone] Allergies Active Allergy Reactions Criticality Noted Date Comments Sulfa (Sulfonamide Antibiotics) Hives Medium 02/2022 Medications atorvastatin (LIPITOR) 10 mg tablet atorvastatin 10 mg tablet TAKE 1 TABLET BY MOUTH EVERY DAY Active PARoxetine (PAXIL) 20 mg tablet paroxetine 20 mg tablet TAKE 1 TABLET BY MOUTH EVERY DAY Active omeprazole (PriLOSEC) 10 mg capsule Take 1 capsule (10 mg total) by mouth daily Active magnesium oxide (MAG-OX) 250 mg (150.8 mg elemental) tabletIndicatio ns:hypomagnesem ia 1 tablet (250 mg total) daily Active cholecalciferol (VITAMIN D-3) 1,000 unit Take 1 tablet/capsule (1,000 Units total) by mouth daily Active CALCIUM CITRATE ORAL Take 1,200 mg by mouth daily Active dilTIAZem CD/XR/XT (dilTIAZem CD) 120 mg 24 hr capsuleIndicati ons:SVT (supraventricul ar tachycardia) (HCC) Take 1 capsule (120 mg total) by mouth daily 90 capsule 3 4 05/09/20 25 Active Active Problems Problem Noted Date Diagnosed Date Panic attack 02/07/2024 Hyperlipidemia LDL goal <100 02/07/2024 BRO (obstructive sleep apnea) 02/07/2024 SVT (supraventricular tachycardia) 02/07/2024 Lesion of vulva 05/16/2022 Immunizations Immunization Administration Dates Next Due Tdap 03/17/2021 Social History Tobacco Use Types Packs/Day Years Used Date Smoking Tobacco: Never Passive Smoke Exposure: Past Smokeless Tobacco: Never Tobacco Cessation:Counseling Given: Not Answered Personal Safety Answer Date Recorded Getting School Help Needed Not on file 09/18 Comments Unknown Sex and Gender Information Value Date Recorded Sex Assigned at Not on file 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 Gender Identity Not on file Sexual Orientation Not on file 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 file Not on file Not on file Last Filed Vital Signs Vital Sign Reading Time Taken Comments Blood Pressure 112/66 05/09/2024 9:29 AM CDT Pulse 70 05/09/2024 9:29 AM CDT Temperature - - Respiratory Rate - - Oxygen Saturation 96% 05/09/2024 9:29 AM CDT Inhaled Oxygen Concentration - - Weight 78 kg (172 lb) 05/09/2024 9:29 AM CDT Height 165.1 cm (5' 5 ) 05/09/2024 9:29 AM CDT Body Mass Index 28.62 05/09/2024 9:29 AM CDT Plan of Treatment Not on file [place] [employer] [place] Care Teams Upholstery Mechanic Relationship Specialty Start Date End Date Annel Allred DO [address] [facility] [address] [place] [id number] PCP - General Family Medicine 02/05/24
--- OUTSIDE RECORDS SUMMARY | 2024-11-04 09:49 | XMS_ITS | Encounter Summary ---
Author Organization [facility] Healthcare Address [address] [place] [address] Care Team Providers Care Packager Or Packer And Weigher Name Role Phone Brigida Annel Trinidad DO Primary Care Provider +1- [phone] Annel Allred DO Primary Care Provider +1- [phone] Encounter Details Date Type Department Care Team (Late st Contact Info) Description 12/11/[address] 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 Gender Identity Not on file Sexual Orientation Not on file Occupation Industry Job Start Date Job End Date Ex [place] Not on file Not on file Not on file documented as of this encounter Plan of Treatment Not on file documented as of this encounter Procedures Procedure Name Priority Date/Time Associated Diagnosis Comments SCAN - RADIOLOGY/IMAGING 12/11/2023 SCAN - LABS 12/11/2023 documented in this encounter Results * SCAN - LABS (12/11/2023) us Provider Scanning Edited Result - Final * SCAN - RADIOLOGY/IMAGING (12/11/2023) Anatomical Region Laterality Modality Other us Provider Scanning Final Result documented in this encounter Visit Diagnoses Not on filedocumented in this encounter Care Teams Packager Or Packer And Weigher Relationship Specialty Start Date End Date Annel Allred DO PCP - General Family Medicine 04/05/22 02/04/24 Annel Allred DO [address] [place] [address] [address] [place] [id number] PCP - General Family Medicine 02/05/24 documented as of this encounter
--- OUTSIDE RECORDS SUMMARY | 2024-11-04 09:49 | XMS_ITS | Clinical Summary ---
Author Organization [facility] Address [address] [place] [address] Care Team Providers Care Secretary Administrative Assistant Name Role Phone Annel Allred DO Primary Care Provider +1- [phone] Allergies Active Allergy Reactions Criticality Noted Date [...] Immunization Administration Dates Next Due Tdap 03/17/2021 Surgical History Surgery Date Site/Laterality Comments TUBAL LIGATION Medical History Medical History Date Comments Hypercholesteremia Anxiety Depression Osteoarthritis Obesity Family History Medical History Relation Name Comments No Known Problems Brother Other Father Dementia Mother No Known Problems Sister Relation Name Status Comments Brother Alive Father Mother Alive Sister Alive Social History Tobacco Use Types Packs/Day Years Used Date Smoking Tobacco: Never Passive Smoke Exposure: Past Smokeless Tobacco: Never Tobacco Cessation:Counseling Given: Not Answered Personal Safety Answer Date Recorded Getting School Help Needed Not on file 09/18 Comments Unknown Sex and Gender Information Value Date Recorded Sex Assigned at Not on file 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 Gender Identity Not on file Sexual Orientation Not on file Occupation Industry Job Start Date Job End Date Ex [place] Not on file Not on file Not on file Obstetrics History Last Filed Vital Signs Vital Sign Reading [...] 05/09/2024 9:29 AM CDT Plan of Treatment Health Maintenance Due Date Last Done Comments Breast Cancer Screening-Mammogram 1960 Cervical Cancer Screening 1960 Colon Cancer Screening-Colonoscopy 1960 Depression Screening 1960 Hepatitis C Screening 1960 Hepatitis B Screening 1978 Regular Well Visit/Exam 18-64 1978 Zoster Vaccine (1 of 2) 2010 Covid-19 Vaccine (2023-2 5 season) 2024 09/15/2021, 12/20/2020, 11/25/2020 Influenza Vaccine (#1) 2024 DTaP/Tdap/Td Vaccine (2 - Td or Tdap) 03/17/2031 03/17/2021 Pneumococcal vaccine <65 Aged Out No longer eligible based on patient's age to complete this topic Insurance [employer] [place] [employer] [place] Care Teams Secretary Administrative Assistant Relationship Specialty Start Date End Date Annel Allred DO [address] [place] [address] [address] [place], [place] [id number] PCP - General Family Medicine 02/05/24
[2024-11-04 10:11] LABS: Hematocrit 43.6 % (37.0-47.0); Mean Corpuscular HGB Conc 32.1 g/dl (32-36); Mean Corpuscular Hemoglobin 30.1 pg (26-34); Mean Corpuscular Volume 93.8 fl (80-100); Mean Platelet Volume 11.1 fl (7.4-10.4); Platelet Count Result 234 k/mm3 (150-375); Red Blood Count 4.65 M/mm3 (4.2-5.4); Red Cell Distribution Width 13.4 % (11.5-14.5); White Blood Count 6.6 K/mm3 (4.5-10.0)
[2024-11-04 10:24] LABS: Alanine Aminotransferase 13 U/L (6-35); Alkaline Phosphatase 119 U/L (38-126); Anion Gap 9 mmol/L (4-12); Aspartate Amino Transferase 28 U/L (14-36); Bilirubin,Total 0.5 mg/dL (0.2-1.3); Blood Urea Nitrogen 27 mg/dL (7-17); Calcium 9.3 mg/dL (8.4-10.2); Carbon Dioxide 26 mmol/L (22-30); Chloride 105 mmol/L (98-107); Cholesterol 151 mg/dL (0-200); Estimated Glomerular Filt Rate > 60; Glucose 106 mg/dL (65-110); HDL Direct 59 mg/dL; Potassium 4.2 mmol/L (3.4-5.0); Sodium 140 mmol/L (137-145); Triglycerides 92 mg/dL (<150)
[2024-11-04 10:35] LABS: LDL Cholesterol Direct 59 mg/dL
== END 2024-11-04 09:06 | disposition home or self-care (01) ==
LOC: ANHGOSHLAB 09:07
PROVIDERS: PCP Family Medicine; Visit Provider Family Medicine
DX: R74.8 Abnormal levels of other serum enzymes (principal); E78.2 Mixed hyperlipidemia; Z79.899 Other long term (current) drug therapy
CPT/HCPCS: 36415; 80053; 80061; 84443; 85027

== ENCOUNTER 2024-11-23 14:22 | Emergency (ER) | payer BC, SELFPAY ==
--- NOTE | ~2024-11-23 | XR_ITS ---
EXAMINATION: XR chest 2V Exam Date/Time: 11/23/2024 14:50 CDT HISTORY: Arrhythmia Comparison: 03/27/2024. RESULT: Lines, tubes, and devices: None. Lungs and pleura: Streaky subsegmental bibasilar opacities. Minimal right costophrenic angle bluntin g. Cardiomediastinal silhouette: Stable. Hiatal hernia. Other: No acute osseous or upper abdominal finding. IMPRESSION: Subsegmental bibasilar atelectasis/consolidation. Possible trace right pleural effusion. Reviewed, dictated and finalized at location K.
[2024-11-23 14:24] VITALS: BP 109/91; PULSE 178; RESP 21; TEMP 36.8; O2SAT 100
--- OUTSIDE RECORDS SUMMARY | 2024-11-23 14:24 | XMS_ITS | Clinical Summary ---
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
--- OUTSIDE RECORDS SUMMARY | 2024-11-23 14:25 | XMS_ITS | Referral Summary ---
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 [address] [place] [id number] PCP - General Family Medicine 02/05/24
--- OUTSIDE RECORDS SUMMARY | 2024-11-23 14:25 | XMS_ITS | Encounter Summary ---
Author Organization [facility] Healthcare Address [address] [place] [address] Care Team Providers Care Invoicing Specialist Name Role Phone Brigida Annel Trinidad DO Primary Care Provider +1- [phone] Annel Allred DO Primary Care Provider +1- [phone] Encounter Details Date Type Department Care Team (Late st Contact Info) Description 12/11/2023 Orders Only [facility] Health Information Management [address] [place] [address] Scanning, Provider Social History Tobacco Use Types Packs/Day Years Used Date Smoking Tobacco: Never Smokeless Tobacco: Never Personal Safety Answer Date Recorded Getting School Help Needed Not on file 09/18 Comments Unknown Sex and Gender Information Value Date Recorded Sex Assigned at Not on file Legal Sex Female 10:00 AM HIM DIRECTOR Gender Identity Not on file Sexual Orientation Not on file 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
[2024-11-23 14:26] VITALS: PULSE 176
--- NOTE | 2024-11-23 14:27 | ECG_ITS ---
Test Date: 2024-11-23 14:30:18 Measurements Intervals [place] Rate: 176 P: 0 NM: 0 QRS: 32 QRSD: 92 T: -11 QT: 261 QTc: 448 Interpretive Statements SUPRAVENTRICULAR TACHYCARDIA MODERATE ST DEPRESSION [0.05+ mV ST DEPRESSION] Compared to ECG 03/27/2024 17:43:26 ST (T wave) deviation now present Sinus rhythm no longer present First degree AV block no longer present Electronically Signed On 11-24-2024 15:07:23 CDT by Evans Zambrano M.D.
[2024-11-23 14:32] VITALS: BP 109/91; PULSE 84; RESP 15; O2SAT 97
--- NOTE | 2024-11-23 14:33 | ECG_ITS ---
Test Date: 2024-11-23 14:35:39 Measurements Intervals [place] Rate: 82 P: 57 MT: 238 QRS: 21 QRSD: 94 T: 17 QT: 370 QTc: 433 Interpretive Statements SINUS RHYTHM WITH FIRST DEGREE AV BLOCK Compared to ECG 11/23/2024 14:30:18 First degree AV block now present Supraventricular tachycardia no longer present ST (T wave) deviation no longer present Electronically Signed On 11-24-2024 15:08:06 CDT by Evans Zambrano M.D.
--- NOTE | 2024-11-23 14:34 | ED_ITS ---
HPI - Arrhythmia/Palpitations General Chief Complaint: Arrhythmia/Palpitations <Tania Cintron PA-C - Last Filed: 11/23/24 15:52> Stated Complaint: SVT <FIORDALIZA Slater Last Filed: 11/23/24 15:52> Time Seen by Provider: 11/23/24 14:28 <FIORDALIZA Slater Last Filed: 11/23/24 15:52> Source: patient <Tania Cintron PA-C - Last Filed: 11/23/24 15:52> Mode of arrival: ambulatory <FIORDALIZA Slater Last Filed: 11/23/24 15:52> Limitations: no limitations <FIORDALIZA Slater Last Filed: 11/23/24 15:52> History of Present Illness HPI narrative: This is a 64 year old female that presents to the ER for arrhythmia. Reports she was mopping and had bent forward. Started to experience jaw pain, felt similar to when she has had SVT before. Reports she takes Diltiazem. Her floors buffer is Dr. Levy. Denies chest pain or shortness of breath. <FIORDALIZA Slater Last Filed: 11/23/24 15:52> Related Data Home Medications: Home Medications ?Medication ?Instructions ?Recorded ?Confirmed ?Last Taken ?Type cholecalciferol (vitamin D3) 25 1,000 unit PO DAILY 11/14/19 11/07/24 Unknown History mcg (1,000 unit) capsule magnesium 250 mg tablet 250 mg PO DAILY 11/14/19 11/07/24 Unknown History diltiazem HCl 120 mg mg PO DAILY 06/24/24 11/07/24 Unknown History capsule,extended release 24 hr, controlled <FIORDALIZA Slater Last Filed: 11/23/24 15:52> Allergies/Adverse Reactions: Allergies Allergy/AdvReac Type Severity Reaction Status Date / Time Sulfa (Sulfonamide AdvReac Mild Hives Verified 11/23/24 14:28 Antibiotics) <FIORDALIZA Slater Last Filed: 11/23/24 15:52> Review of Systems 2 Review of Systems: All systems reviewed & are unremarkable except as noted in HPI and below <Tania Cintron PA-C - Last Filed: 11/23/24 15:52> [facility] Past Medical History Medical History: Medical History Menopause Screening mammogram, encounter for Obstructive sleep apnea on CPAP 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 Abnormal Pap smear of cervix 02/21/02 lgsil/AKUA I/HPV; 03/20/02 cx bx - mild dysplasia (AKUA I) hpv; 09/26/11 ascus Osteoarthritis Anxiety and depression Hepatitis C antibody test negative (06/15/17) <Tania Cintron PA-C - Last Filed: 11/23/24 15:52> Surgical History Surgical History: Surgical History History of colposcopy with cervical biopsy (03/20/12) mild dysplasiz (AKUA I) w/HPV History of bilateral tubal ligation <Tania Cintron PA-C - Last Filed: 11/23/24 15:52> Family History Family History: Family History Father Diabetes mellitus Family history of elevated blood lipids Grandparent Diabetes mellitus Family history of osteoporosis Family history of arthritis Osteoporosis grandmother Mother Diabetes mellitus Family history of elevated blood lipids Family history of glaucoma Hypertension Family history of arthritis <Tania Cintron PA-C - Last Filed: 11/23/24 15:52> Social History Social History: Social History Smoking status: Never smoker Alcohol intake: never Alcohol use details: occasionnally Substance use: never Substance use type: does not use Lack of Transportation: No Lack of Food: Never True Current Housing: I Have Housing Concerned About Future Housing: No Difficulty Paying Gas/Electric Bills: No Difficulty Paying for Meds: No Currently Unemployed: No Education: Trade/Vocational Certificate Difficulty w/ Childcare or Family Care: No Living arrangements: alone Additional living arrangements comments: Occupation/Education: occupation 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 HEAD: Normocephalic, atraumatic. EYES: EOMI. CHEST: Clear to auscultation. No respiratory distress. No wheezes rales or rhonchi HEART: Tachycardic. No murmur heard. Normal peripheral pulses. EXTREMITIES: Normal range of motion. No edema. SKIN: Warm, dry, no rash. NEURO: No focal deficits. Alert and oriented x3. PSYCH: Normal mood and affect <Tania Cintron PA-C - Last Filed: 11/23/24 15:52> Course Course Emergency Course: patient has remained in normal sinus rhythm since she converted. Monitored in the ER for 2 hours <Tania Cintron PA-C - Last Filed: 11/23/24 15:52> PATTERN VAULT CLERK/PA Physician Supervision For this patient encounter, I reviewed the PATTERN VAULT CLERK or PA documentation, treatment plan, and medical decision making; and I had [id number] time with this patient. I performed the cardioversion using modified Valsalva. <Kirt Cuellar MD - Last Filed: 11/23/24 19:03> Vital Signs Vital signs: Vital Signs Temperature 98.2 F 11/23/24 14:24 Pulse Rate 178 H 11/23/24 14:24 Respiratory Rate 21 H 11/23/24 14:24 Blood Pressure 109/91 H 11/23/24 14:24 Pulse Oximetry 100 11/23/24 14:24 Oxygen Delivery Room Air 11/23/24 14:24 Temperature 98.2 F 11/23/24 14:24 Pulse Rate 83 11/23/24 16:20 Respiratory Rate 18 11/23/24 16:20 Blood Pressure 103/61 11/23/24 16:20 Pulse Oximetry 97 11/23/24 16:20 Oxygen Delivery Room Air 11/23/24 14:24 <Tania Cintron PA-C - Last Filed: 11/23/24 15:52> Vital Signs Temperature 98.2 F 11/23/24 14:24 Pulse Rate 178 H 11/23/24 14:24 Respiratory Rate 21 H 11/23/24 14:24 Blood Pressure 109/91 H 11/23/24 14:24 Pulse Oximetry 100 11/23/24 14:24 Oxygen Delivery Room Air 11/23/24 14:24 Temperature 98.2 F 11/23/24 14:24 Pulse Rate 83 11/23/24 16:20 Respiratory Rate 18 11/23/24 16:20 Blood Pressure 103/61 11/23/24 16:20 Pulse Oximetry 97 11/23/24 16:20 Oxygen Delivery Room Air 11/23/24 14:24 <Kirt Cuellar MD - Last Filed: 11/23/24 19:03> MDM - Arrhythmia/Palpitations MDM Narrative Medical decision making narrative: 64-year-old female presents emergency department for evaluation for acute onset of supraventricular tachycardia that started approximately 1 point today. Patient has had this happen before and patient has needed cardioversion using Adenocard on 2 different occasions. Patient is currently afebrile with no leukocytosis and a hemoglobin of 15. Patient has no acute abnormalities on her CMP and a normal magnesium. Chest x-ray shows no acute cardiopulmonary abnormality. Patient was advised to avoid smoking, avoid alcohol and avoid caffeine. Patient was encouraged to take her medications as directed and to have close follow-up with Cardiology. <Kirt Cuellar MD - Last Filed: 11/23/24 19:03> Differential Diagnosis Differential diagnosis: Likely palpitations, sinus tachycardia, artial fibrillation and supraventricular tachycardia <Tania Cintron PA-C - Last Filed: 11/23/24 15:52> Lab Data Result diagrams: 11/23/24 14:38 11/23/24 14:38 <Tania Cintron PA-C - Last Filed: 11/23/24 15:52> Labs: Lab Results 11/23/24 Range/Units 14:38 WBC 7.2 (4.5-10.0) K/mm3 RBC 5.02 (4.2-5.4) M/mm3 Hgb 15.0 (12.0-15.0) g/dL Hct 45.7 (37.0-47.0) % MCV 91.0 (80-100) fl MCH 29.9 (26-34) pg MCHC 32.8 (32-36) g/dl RDW 13.2 (11.5-14.5) % Plt Count 235 (150-375) k/mm3 MPV 11.1 H (7.4-10.4) fl Immature Gran % (Auto) 0.1 (0-0.5) % Neut % (Auto) 57.4 (45.5-73.1) % Lymph % (Auto) 31.4 (18.3-44.2) % [place] % (Auto) 8.6 H (2.6-8.5) % Eos % (Auto) 1.5 (0-4.4) % Baso % (Auto) 1.0 (0.2-1.2) % Lymph # (Auto) 2.25 (0.9-3.2) K/mm3 [place] # (Auto) 0.6 (0.1-0.6) K/mm3 Eos # (Auto) 0.1 (0-0.3) K/mm3 Baso # (Auto) 0.1 (0.0-0.1) K/mm3 Abs Immat Gran (auto) 0.01 (0.00-0.031) K/mm3 Absolute Neuts (auto) 4.1 (1.3-6.7) K/mm3 Absolute Nucleated RBC 0.000 (0.0-0.012) K/mm3 Nucleated RBC % 0.0 (0.0-0.2) % Sodium 140 (137-145) mmol/L Potassium 3.9 (3.4-5.0) mmol/L Chloride 106 (98-107) mmol/L Carbon Dioxide 26 (22-30) mmol/L Anion Gap 8 (4-12) mmol/L BUN 27 H (7-17) mg/dL Creatinine 0.90 (0.7-1.0) mg/dL Estim Creat Clear Calc 50 ml/min Estimated GFR > 60 (59 - ) Glucose 109 (65-110) mg/dL Calcium 9.1 (8.4-10.2) mg/dL Magnesium 1.7 (1.6-2.3) mg/dL Total Bilirubin 0.3 (0.2-1.3) mg/dL AST 22 (14-36) U/L ALT 12 (6-35) U/L Alkaline Phosphatase 120 (38-126) U/L Total Protein 7.0 (6.3-8.2) g/dL Albumin 4.2 (3.5-5.1) g/dL <Tania Cintron PA-C - Last Filed: 11/23/24 15:52> Lab Results 11/23/24 Range/Units 14:38 WBC 7.2 (4.5-10.0) K/mm3 RBC 5.02 (4.2-5.4) M/mm3 Hgb 15.0 (12.0-15.0) g/dL Hct 45.7 (37.0-47.0) % MCV 91.0 (80-100) fl MCH 29.9 (26-34) pg MCHC 32.8 (32-36) g/dl RDW 13.2 (11.5-14.5) % Plt Count 235 (150-375) k/mm3 MPV 11.1 H (7.4-10.4) fl Immature Gran % (Auto) 0.1 (0-0.5) % Neut % (Auto) 57.4 (45.5-73.1) % Lymph % (Auto) 31.4 (18.3-44.2) % [place] % (Auto) 8.6 H (2.6-8.5) % Eos % (Auto) 1.5 (0-4.4) % Baso % (Auto) 1.0 (0.2-1.2) % Lymph # (Auto) 2.25 (0.9-3.2) K/mm3 [place] # (Auto) 0.6 (0.1-0.6) K/mm3 Eos # (Auto) 0.1 (0-0.3) K/mm3 Baso # (Auto) 0.1 (0.0-0.1) K/mm3 Abs Immat Gran (auto) 0.01 (0.00-0.031) K/mm3 Absolute Neuts (auto) 4.1 (1.3-6.7) K/mm3 Absolute Nucleated RBC 0.000 (0.0-0.012) K/mm3 Nucleated RBC % 0.0 (0.0-0.2) % Sodium 140 (137-145) mmol/L Potassium 3.9 (3.4-5.0) mmol/L Chloride 106 (98-107) mmol/L Carbon Dioxide 26 (22-30) mmol/L Anion Gap 8 (4-12) mmol/L BUN 27 H (7-17) mg/dL Creatinine 0.90 (0.7-1.0) mg/dL Estim Creat Clear Calc 50 ml/min Estimated GFR > 60 (59 - ) Glucose 109 (65-110) mg/dL Calcium 9.1 (8.4-10.2) mg/dL Magnesium 1.7 (1.6-2.3) mg/dL Total Bilirubin 0.3 (0.2-1.3) mg/dL AST 22 (14-36) U/L ALT 12 (6-35) U/L Alkaline Phosphatase 120 (38-126) U/L Total Protein 7.0 (6.3-8.2) g/dL Albumin 4.2 (3.5-5.1) g/dL <Kirt Cuellar MD - Last Filed: 11/23/24 19:03> Imaging Data Radiologist's impression: ITS Impressions Chest X-Ray 11/23/24 15:37 IMPRESSION: Subsegmental bibasilar atelectasis/consolidation. Possible trace right pleural effusion. <Tania Cintron PA-C - Last Filed: 11/23/24 15:52> ECG Data EKG #1: ECG completion date: 11/23/24 <Tania Cintron PA-C - Last Filed: 11/23/24 15:52> EKG Interpretation: SVT <Tania Cintron PA-C - Last Filed: 11/23/24 15:52> EKG #2: ECG completion date: 11/23/24 <Tania Cintron PA-C - Last Filed: 11/23/24 15:52> EKG Interpretation: normal rate and sinus rhythm <Tania Cintron PA-C - Last Filed: 11/23/24 15:52> Critical Care Time Critical Care Time Critical Care Time: Yes <Tania Cintron PA-C - Last Filed: 11/23/24 15:52> Total Critical Care Time: 35 <Tania Cintron PA-C - Last Filed: 11/23/24 15:52> Discharge Plan Discharge Clinical Impression: Sustained SVT <Tania Cintron PA-C - Last Filed: 11/23/24 15:52> Patient Disposition: Home, Self-Care <Tania Cintron PA-C - Last Filed: 11/23/24 15:52> Condition: Stable <Tania Cintron PA-C - Last Filed: 11/23/24 15:52> Instructions: Antibiotic Form, Supraventricular Tachycardia (ED) <Tania Cintron PA-C - Last Filed: 11/23/24 15:52> Additional Instructions: Drink plenty fluids. Avoid smoking, drinking alcohol and caffeine. Continue to have close follow-up with cardiology. If you have any worsening symptoms and please call or return to the emergency department. <Tania Cintron PA-C - Last Filed: 11/23/24 15:52> Patient Language: Malagasy <Tania Cintron PA-C - Last Filed: 11/23/24 15:52> Prescriptions: No Action magnesium 250 mg tablet 250 mg PO DAILY cholecalciferol (vitamin D3) 25 mcg (1,000 unit) capsule 1,000 unit PO DAILY omeprazole 20 mg capsule,delayed release(DR/EC) 20 mg PO DAILY Qty: 90 1RF (DME) CPAP Equipment See Rx Instructions .Route .MEDSUPPLY Qty: 1 0RF Rx Instructions: Rx: Fit patient for a Resmed AirTouch F20 full face mask Dx: G47.33 DME: [facility] Physician: Dr. Jessica Morales, diltiazem HCl 120 mg capsule,ext.rel 24h degradable PO DAILY trazodone 50 mg tablet 50 mg PO QHS PRN (Reason: insomnia) Qty: 180 0RF Rx Instructions: Take 30 minutes before bedtime. Increase to 2 tablets after 1 week if symptoms persist. (DME) CPAP Pressure See Rx Instructions .Route .MEDSUPPLY Qty: 1 0RF Rx Instructions: Rx: Change pressure to CPAP 13 cm H2O with EPR of 2. Pressure settings already changed on Resmed Airview. Dx: G47.33 DME: [facility] Physician: Dr. Jessica Morales, DO atorvastatin 10 mg tablet See Rx Instructions .ROUTE .COMPLEX Qty: 90 1RF Dose Instruction: TAKE 1 TABLET BY MOUTH EVERY DAY Rx Instructions: TAKE 1 TABLET BY MOUTH EVERY DAY paroxetine HCl 37.5 mg tablet extended release 24 hr See Rx Instructions .ROUTE .COMPLEX Qty: 90 0RF Dose Instruction: TAKE 1 TABLET BY MOUTH EVERY MORNING Rx Instructions: TAKE 1 TABLET BY MOUTH EVERY MORNING <Tania Cintron PA-C - Last Filed: 11/23/24 15:52> Follow-up/Referrals: Bart Levy MD [Physician] - Annel Allred DO [Primary Care Provider] - <Tania Cintron PA-C - Last Filed: 11/23/24 15:52>
[2024-11-23 14:44] LABS: Basophils Absolute Auto 0.1 K/mm3 (0.0-0.1); Eosinophils Absolute Auto 0.1 K/mm3 (0-0.3); Eosinophils Percent Auto 1.5 % (0-4.4); Hematocrit 45.7 % (37.0-47.0); Immature Granulocyte Absolute 0.01 K/mm3 (0.00-0.031); Immature Granulocyte Percent A 0.1 % (0-0.5); Lymphocytes Absolute Auto 2.25 K/mm3 (0.9-3.2); Lymphocytes Percent Auto 31.4 % (18.3-44.2); Mean Corpuscular HGB Conc 32.8 g/dl (32-36); Mean Corpuscular Hemoglobin 29.9 pg (26-34); Mean Platelet Volume 11.1 fl (7.4-10.4); Monocytes Absolute Auto 0.6 K/mm3 (0.1-0.6); Monocytes Percent Auto 8.6 % (2.6-8.5); Neutrophils Absolute Auto 4.1 K/mm3 (1.3-6.7); Neutrophils Percent Auto 57.4 % (45.5-73.1); Platelet Count Result 235 k/mm3 (150-375); Red Blood Count 5.02 M/mm3 (4.2-5.4); Red Cell Distribution Width 13.2 % (11.5-14.5); White Blood Count 7.2 K/mm3 (4.5-10.0)
[2024-11-23 14:54] LABS: Alanine Aminotransferase 12 U/L (6-35); Albumin Level 4.2 g/dL (3.5-5.1); Alkaline Phosphatase 120 U/L (38-126); Anion Gap 8 mmol/L (4-12); Aspartate Amino Transferase 22 U/L (14-36); Bilirubin,Total 0.3 mg/dL (0.2-1.3); Blood Urea Nitrogen 27 mg/dL (7-17); Calcium 9.1 mg/dL (8.4-10.2); Carbon Dioxide 26 mmol/L (22-30); Chloride 106 mmol/L (98-107); Estimated CRCL calculation 50 ml/min; Estimated Glomerular Filt Rate > 60; Glucose 109 mg/dL (65-110); Magnesium 1.7 mg/dL (1.6-2.3); Potassium 3.9 mmol/L (3.4-5.0); Sodium 140 mmol/L (137-145)
[2024-11-23 16:20] VITALS: BP 103/61; PULSE 83; RESP 18; O2SAT 97
== END 2024-11-23 16:22 | disposition home or self-care (01) ==
PROVIDERS: Emergency Provider Physician Assistant; PCP Family Medicine
DX: I47.10 Supraventricular tachycardia, unspecified (principal); G47.33 Obstructive sleep apnea (adult) (pediatric); M19.90 Unspecified osteoarthritis, unspecified site; Z79.899 Other long term (current) drug therapy; I44.0 Atrioventricular block, first degree
CPT/HCPCS: 36415; 71046; 80053; 83735; 85025; 93005; 99284

== ENCOUNTER 2025-04-17 10:09 | Outpatient (CLI) | payer BC, SELFPAY ==
--- OUTSIDE RECORDS SUMMARY | 2025-04-17 10:13 | XMS_ITS | Clinical Summary ---
Author Organization [facility] Address [address] [place] [address] Care Team Providers Care Char Filter Operator Name Role Phone Annel Allred DO Primary Care Provider [phone] Allergies Active Allergy Reactions Criticality Noted Date [...] Take 1,200 mg by mouth daily Active PARoxetine CR (PAXIL-CR) 37.5 mg 24 hr tablet Take 1 tablet (37.5 mg total) by mouth every morning 5 Active eszopiclone (LUNESTA) 1 mg tablet Take 1 tablet (1 mg total) by mouth nightly at bedtime 5 Active dilTIAZem XR 120 mg 24 hr capsuleIndicati ons:SVT (supraventricul ar tachycardia) TAKE 1 CAPSULE BY MOUTH DAILY (DISCONTINUE 30MG TABS) 90 capsule 3 5 Active Active Problems Problem Noted Date Diagnosed [...] Tobacco: Never Tobacco Cessation:Counseling Given: Not Answered Comments Unknown Sex and Gender Information Value Date Recorded Sex Assigned at Not on file 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 Gender Identity Not on file Sexual Orientation Not on file 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 Not on file Not on file Obstetrics History Last Filed Vital Signs Vital Sign Reading Time Taken Comments Blood Pressure 110/76 12/31/2024 10:00 AM CDT Pulse 74 12/31/2024 10:00 AM CDT Temperature - - Respiratory Rate - - Oxygen Saturation 99% 12/31/2024 10:00 AM CDT Inhaled Oxygen Concentration - - Weight 77.6 kg (171 lb) 12/31/2024 10:00 AM CDT Height 165.1 cm (5' 5) 12/31/2024 10:00 AM CDT Body Mass Index 28.46 12/31/2024 10:00 AM CDT Plan of Treatment Health Maintenance Due Date Last Done Comments Breast Cancer Screening-Mammogram 1960 Cervical Cancer Screening 1960 Colon Cancer Screening-Colonoscopy 1960 Depression Screening 1960 Hepatitis C Screening 1960 Hepatitis B Screening 1978 Regular Well Visit/Exam 18-64 1978 Zoster Vaccine (1 of 2) 2010 Covid-19 Vaccine (2023-2 5 season) 2024 09/15/2021, 12/20/2020, 11/25/2020 Influenza Vaccine (#1) 2025 DTaP/Tdap/Td Vaccine (2 - Td or Tdap) 03/17/2031 03/17/2021 Pneumococcal vaccine <65 Aged Out No longer eligible based on patient's age to complete this topic Insurance [employer] [place] [place] [employer] [place] [place] Care Teams Char Filter Operator Relationship Specialty Start Date End Date Annel Allred DO [address] [place] [address] [place] [address] PCP - General Family Medicine 02/05/24
[2025-04-17 11:23] LABS: Hematocrit 44.2 % (37.0-47.0); Hemoglobin 14.3 g/dL (12.0-15.0); Mean Corpuscular HGB Conc 32.4 g/dl (32-36); Mean Corpuscular Hemoglobin 29.5 pg (26-34); Mean Corpuscular Volume 91.1 fl (80-100); Platelet Count Result 241 k/mm3 (150-375); Red Blood Count 4.85 M/mm3 (4.2-5.4); White Blood Count 7.5 K/mm3 (4.5-10.0)
[2025-04-17 12:19] LABS: Alanine Aminotransferase 12 U/L (6-35); Albumin Level 4.0 g/dL (3.5-5.1); Alkaline Phosphatase 117 U/L (38-126); Anion Gap 8 mmol/L (4-12); Aspartate Amino Transferase 33 U/L (14-36); Bilirubin,Total 0.5 mg/dL (0.2-1.3); Blood Urea Nitrogen 18 mg/dL (7-17); Calcium 9.2 mg/dL (8.4-10.2); Carbon Dioxide 23 mmol/L (22-30); Chloride 107 mmol/L (98-107); Cholesterol 158 mg/dL (0-200); Estimated Glomerular Filt Rate > 60; Glucose 91 mg/dL (65-110); HDL Direct 49 mg/dL; Potassium 3.8 mmol/L (3.4-5.0); Sodium 138 mmol/L (137-145); Total Protein 6.9 g/dL (6.3-8.2); Triglycerides 135 mg/dL (<150)
[2025-04-17 12:49] LABS: Thyroid Stimulating Hormone 1.340 uIU/mL (0.465-4.680)
== END 2025-04-17 10:10 | disposition home or self-care (01) ==
LOC: ANHLAB 10:10
PROVIDERS: PCP Family Medicine; Visit Provider Family Medicine
DX: E78.5 Hyperlipidemia, unspecified (principal); E78.2 Mixed hyperlipidemia; E66.9 Obesity, unspecified; Z79.899 Other long term (current) drug therapy
CPT/HCPCS: 36415; 80053; 80061; 84443; 85027